=== PATIENT | female | born 2000 | race Caucasian/White ===

== ENCOUNTER 2022-01-12 03:11 | Emergency (ER) | payer BC ==
[2022-01-12] MEDS ORDERED: Bacitracin 1 PK ONE (04:01)
[2022-01-12] MEDS ORDERED: Boostrix 0.5 ML (Tdap) VIAL ONE (04:01)
== END 2022-01-12 04:23 | disposition home or self-care (01) ==
LOC: CSHERS 03:11
DX: S91.011A Laceration without foreign body, right ankle, initial encounter (principal); X58.XXXA Exposure to other specified factors, initial encounter
CPT/HCPCS: 90471; 90715